=== PATIENT | female | born 1995 | race Caucasian/White ===

== ENCOUNTER 2019-07-03 02:40 | Emergency (ER) | payer OTHER ==
[~2019-07-03] VITALS: Ht 149.9 cm; Wt 57.6 kg
[2019-07-03 02:55] VITALS: Ht 149.9 cm; Wt 57.6 kg
[2019-07-03 04:07] VITALS: BP 107/70
== END 2019-07-03 04:07 | disposition home or self-care (01) ==
LOC: ED 02:40
DX: N39.0 Urinary tract infection, site not specified (principal)